=== PATIENT | female | born 2000 | race Caucasian/White ===

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

== ENCOUNTER 2018-01-27 18:53 | Emergency (ER) | payer OTHER ==
[2018-01-27 18:53] VITALS: BMI 23.9
[2018-01-27] MEDS ORDERED: Albuterol-Ipratrop 3 mg / 0.5 (3 ml) UD ONE (19:04)
[2018-01-27 19:10] VITALS: RESP 20
[2018-01-27] MEDS ORDERED: Albuterol-Ipratrop 3 mg / 0.5 (3 ml) UD INH STA (19:11)
[2018-01-27] MEDS ORDERED: Albuterol 0.083% Inhal Sol (2.5 mg/3 mL) UD INH STA (19:25)
--- NOTE | 2018-01-27 19:25 | C.PDOC ---
History Of Present Illness 17 year old female with PMHx of asthma presents to the ED c/o cough, SOB, chest tightness and wheezing 2 days ago. Patient tried to use her albuterol at home with minimal relief. Patient also c/o pain in the chest and back after coughing. Patient denies fever, chills, nausea, vomit, diarrhea, recent travel, sick contacts. Time Seen by Provider: 01/27/18 19:18 Chief Complaint (Nursing): Shortness Of Breath History Per: Patient History/Exam Limitations: no limitations Onset/Duration Of Symptoms: Days Current Symptoms Are (Timing): Still Present Initiating Event: Upper Respiratory Illness Quality: Tightness Exacerbating Factor(s): Coughing Current Respiratory Medications: Albuterol Recent travel outside of the [place]: No Additional History Per: Patient Past Medical History Reviewed: Historical Data, Nursing Documentation, Vital Signs Vital Signs: Last Vital Signs Temp 98.2 F 01/27/18 20:41 Pulse 100 H 01/27/18 20:41 Resp 20 01/27/18 20:41 BP 109/73 01/27/18 20:41 Pulse Ox 100 01/27/18 23:18 - Medical History PMH: Asthma Surgical History: No Surg Hx Family History: States: Unknown Family Hx - Social History Hx Tobacco Use: No Hx Alcohol Use: No Hx Substance Use: No - Immunization History Hx Tetanus Toxoid Vaccination: Yes Hx Influenza Vaccination: Yes Hx Pneumococcal Vaccination: No Review Of Systems Constitutional: Negative for: Fever, Chills Cardiovascular: Positive for: Chest Pain Respiratory: Positive for: Cough, Shortness of Breath Gastrointestinal: Negative for: Vomiting, Abdominal Pain Genitourinary: Negative for: Dysuria Musculoskeletal: Positive for: Back Pain Skin: Negative for: Rash Neurological: Negative for: Weakness, Numbness Physical Exam - Physical Exam Appears: Non-toxic, No Acute Distress Skin: Normal Color, Warm, Dry Head: Atraumatic, Normacephalic Eye(s): bilateral: Normal Inspection Ear(s): Bilateral: Normal Nose: No Discharge, No Epistaxis Oral Mucosa: Moist Throat: Normal, No Erythema, No Exudate Neck: Normal ROM, Supple Chest: Symmetrical Cardiovascular: Rhythm Regular, No Murmur Respiratory: Decreased Breath Sounds, Wheezing (expiratory) Gastrointestinal/Abdominal: Soft, No Tenderness, No Guarding, No Rebound Extremity: Normal ROM, No Tenderness, No Swelling Neurological/Psych: Oriented x3 Gait: Steady ED Course And Treatment O2 Sat by Pulse Oximetry: 100 (On RA) Pulse Ox Interpretation: Normal Progress Note: Plan: - Albuterol 2.5 mg INH (x2). - Benadryl 25 mg PO. - Motrin 600 mg PO. - Prednisone 60 mg PO. Patient is resting comfortably with no wheezing, chest pain, or retractions. Oxygen saturation has improved. Patient is alert and oriented x 3. Patient was advised to follow up with physician in 1-2 days. Reassessment Condition: Improved Disposition Counseled Patient/Family Regarding: Diagnosis, Need For Followup, Rx Given - Disposition Referrals: Marshall Interiano MD [Non-Staff] - Disposition: HOME/ ROUTINE Disposition Time: 19:25 Condition: STABLE Additional Instructions: Please follow up with PMD Take meds as directed/ Continue albuterol inhaler Return to ER if worse Prescriptions: Benzonatate [Tessalon Perles] 100 mg PO TID #20 sgl Cetirizine HCl [Zyrtec] 10 mg PO DAILY #14 capsule predniSONE [Prednisone] 40 mg PO DAILY #8 tab Instructions: Asthma, Adult (DC) Forms: [employer] (Yakut), School Excuse - Clinical Impression Clinical Impression: Respiratory tract infection, Asthma - PA / STORE ADMINISTRATIVE ASSISTANT / Resident Statement MD/DO has reviewed & agrees with the documentation as recorded. - Scribe Statement The provider has reviewed the documentation as recorded by the Scribe Justice Mireles All medical record entries made by the Scribe were at my direction and personally dictated by me. I have reviewed the chart and agree that the record accurately reflects my personal performance of the history, physical exam, medical decision making, and the department course for this patient. I have also personally directed, reviewed, and agree with the discharge instructions and disposition.
[2018-01-27] MEDS ORDERED: DiphenhydrAMINE 12.5 mg/5 ml LIQ UD (5 ml) PO STA (19:30)
[2018-01-27] MEDS ORDERED: Albuterol 0.083% Inhal Sol (2.5 mg/3 mL) UD ONE (19:35)
[2018-01-27] MEDS ORDERED: DiphenhydrAMINE 12.5 mg/5 ml LIQ UD (5 ml) ONE (19:36)
[2018-01-27 20:42] VITALS: BP 109/73; PULSE 100; TEMP 98.2
[2018-01-27 23:13] VITALS: O2SAT 100
== END 2018-01-27 20:42 | disposition home or self-care (01) ==
LOC: C.ER 18:53
DX: J45.909 Unspecified asthma, uncomplicated (principal); J98.8 Other specified respiratory disorders

== ENCOUNTER 2019-01-29 20:10 | Emergency (ER) | payer SELFPAY ==
[2019-01-29 20:10] VITALS: BMI 23.9
[2019-01-29 20:18] VITALS: BP 113/73; PULSE 92; RESP 20; TEMP 98.4; O2SAT 100
--- NOTE | 2019-01-29 20:43 | C.PDOC ---
History Of Present Illness 18 y/o female presents to the ED for medical evaluation of discharge from the right eye since yesterday. She states that she woke up yesterday with the right eyelid shut with yellow/ green discharge and complains of redness. She also admits to slight pain, 3/10 severity. She denies blurred vision, recent illness, fever, chills, nausea, and vomiting. She denies sick contacts. Time Seen by Provider: 01/29/19 20:14 Chief Complaint (Nursing): Eye Problem History Per: Patient History/Exam Limitations: no limitations Onset/Duration Of Symptoms: Days Current Symptoms Are (Timing): Still Present Injury To Eye?: No Severity: Mild Quality: Aching Associated Symptoms: Pain, Discharge From Eye. denies: Decreased Vision, Swelling, FB Sensation, Itching Recent travel outside of the [place]: No Past Medical History Reviewed: Historical Data, Nursing Documentation, Vital Signs Vital Signs: Last Vital Signs Temp 98.4 F 01/29/19 20:15 Pulse 92 H 01/29/19 20:15 Resp 20 01/29/19 20:15 BP 113/73 01/29/19 20:15 Pulse Ox 100 01/29/19 20:15 - Medical History PMH: Asthma Family History: States: Unknown Family Hx - Social History Hx Tobacco Use: No Hx Alcohol Use: No Hx Substance Use: No - Immunization History Hx Tetanus Toxoid Vaccination: Yes Hx Influenza Vaccination: Yes Hx Pneumococcal Vaccination: No Review Of Systems Constitutional: Negative for: Fever, Chills Eyes: Positive for: Pain, Conjunctivae Inflammation, Redness. Negative for: Vision Change ENT: Negative for: Ear Pain, Nose Discharge, Nose Congestion, Throat Pain Cardiovascular: Negative for: Chest Pain Respiratory: Negative for: Shortness of Breath Gastrointestinal: Negative for: Nausea, Vomiting Skin: Negative for: Rash Neurological: Negative for: Headache Physical Exam - Physical Exam Appears: Non-toxic, No Acute Distress Skin: Normal Color, Warm, Dry Head: Atraumatic, Normacephalic Eye(s): bilateral: PERRL, EOMI, right: Other (injected conj; yellow mucoid drainage ), left: Normal Inspection Ear(s): Bilateral: Normal (TM intact AU, nonerythematous) Nose: Normal, No Discharge Oral Mucosa: Moist Throat: No Erythema, No Exudate Neck: Normal ROM, No Supple Neurological/Psych: Oriented x3, Normal Speech, Normal Cognition, Normal Motor, Normal Sensation ED Course And Treatment O2 Sat by Pulse Oximetry: 100 Medical Decision Making Medical Decision Making: VA OD: OS: Disposition Counseled Patient/Family Regarding: Diagnosis, Need For Followup, Rx Given - Disposition Referrals: Luis Miguel Menezes MD [Staff Provider] - Disposition: HOME/ ROUTINE Disposition Time: 20:40 Condition: STABLE Additional Instructions: counseled patient on importance of hand hygiene/avoiding touching face to prevent spread start antibiotics eye drops four times a day follow up with Ophtho in 1-2 days Return to ED if symptoms return Prescriptions: Polymyxin/Trimethoprim Sulfate [Polytrim Ophth Soln] 1 drop OU QID 7 Days #1 bottle Instructions: Conjunctivitis ([place]) (DC) Forms: [employer] (Togolese), Work Excuse - Clinical Impression Clinical Impression: Conjunctivitis - PA / CORPORATION LAWYER / Resident Statement MD/DO has reviewed & agrees with the documentation as recorded.
== END 2019-01-29 21:04 | disposition home or self-care (01) ==
LOC: C.ER 20:10
DX: H10.9 Unspecified conjunctivitis (principal)